=== PATIENT | male | born 1975 | race Asian ===

== ENCOUNTER → 2024-04-04 11:58 | Outpatient (REF) | payer BC, SELFPAY | LOC: REG 11:58 | PROVIDERS: ATTENDING PHYSICIAN Student in an Organized Health Care Education/Training Program; FAMILY PHYSICIAN Family Medicine | DX: M25.522 Pain in left elbow (principal); M70.22 Olecranon bursitis, left elbow | CPT/HCPCS: 87070; 87075; 87147; 87205 ==